=== PATIENT | female | born 1960 | race Caucasian/White ===

== ENCOUNTER 2016-10-15 10:31 | Emergency (ER) | payer OTHER ==
[~2016-10-15] VITALS: Ht 152.4 cm; Wt 70.3 kg
--- NOTE | ~2016-10-15 | EKG ---
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
--- NOTE | ~2016-10-15 | EKG ---
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
[2016-10-15] MEDS ORDERED: LISINOPRIL5 MG PO (10:39)
[2016-10-15] MEDS ORDERED: METFORMIN HCL500 MG PO (10:39)
[2016-10-15 11:28] LABS: ABSOLUTE NEUTROPHILS 6.6 thou/uL (1.4-8.2); BASOPHILS 0.7 % (0.0-2.0); HEMATOCRIT 38.1 % (37.0-47.0); HEMOGLOBIN 12.8 gm/dL (12.0-15.0); LYMPHOCYTES 21.5 % (24.0-44.0); MCH 29.6 pg (26.0-34.0); MCHC 33.6 % (28.0-37.0); MONOCYTES 5.9 % (1.0-8.0); PLATELET COUNT 319 thou/uL (150-400); POLYS 69.9 % (36.0-66.0); RBC 4.33 mil/uL (4.20-5.00); RDW 14.1 % (10.5-14.5); WBC 9.4 thou/uL (4.0-11.0)
[2016-10-15 11:34] LABS: MANUAL DIFF NO
[2016-10-15 11:42] LABS: ANION GAP 15 mmol/L (7-16); BUN 15 mg/dL (7-18); CALCIUM 9.1 mg/dL (8.5-10.1); CHLORIDE 99 mmol/L (98-107); CO2 24 mmol/L (21-32); GLUCOSE 327 mg/dL (70-99); POTASSIUM 4.7 mmol/L (3.5-5.1); SODIUM 138 mmol/L (136-145)
[2016-10-15 11:48] LABS: ALBUMIN 3.8 g/dL (3.4-5.0); ALKALINE PHOSPHATASE 113 U/L (46-116); MAGNESIUM 1.5 mg/dL (1.8-2.4); SGOT 14 U/L (15-37); SGPT 21 U/L (30-65); TOTAL BILIRUBIN 0.4 mg/dL (<0.1-1.0); TOTAL PROTEIN 7.9 g/dL (6.4-8.2); TROPONIN-I < 0.04 ng/mL (<0.04-0.07)
[2016-10-15 14:15] VITALS: BP 117/72
== END 2016-10-15 14:18 | disposition home or self-care (01) ==
LOC: ER 10:31
PROVIDERS: Emergency Medicine
DX: R07.89 Other chest pain (principal); E11.9 Type 2 diabetes mellitus without complications; Z88.2 Allergy status to sulfonamides